=== PATIENT | female | born 1965 | race Caucasian/White ===

== ENCOUNTER 2017-02-19 05:35 | Day surgery (SDC) | payer BC, OTHER ==
[2017-02-15 13:14] VITALS: BMI 26.6
--- NOTE | 2017-02-18 15:33 | HP ---
Past Medical History - Admission Chief Complaint: Irregular bleeding History of Present Illness: 51 year old with history of having menses every 23 days lasting 7 days and heav. 6 months ago she reported bleeding for 21 days. bleeding daily for 21 days. A transvaginal ultrasound performed on 01/30/17 revealed a uterus that was 5 by 5 by 5 cm with 3 fibroids present averaging 1.3 cm. The endometrium was 9.6 mm hyperechoic with resemblence of a polyp present . 6 cm with a feeding vessel. The left ovary had a corpus luteum and the right ovary was normal. History Source: Patient Limitations to Obtaining History: No Limitations - Past Medical History ...: 2 ...Para: 2 Musculoskeletal: Yes: Other (Mid back and left sided rib pain) Endocrine: Yes: Hypothyroidism Dermatology: Yes: Other (Recent excison pigmented lesion skin right upper back) - Past Surgical History Hx Myomectomy: No Hx Transabdominal Cerclage: No - Advance Directives Advance Directives: Yes: Health Care Proxy - Smoking History Smoking history: Former smoker Have you smoked in the past 12 months: Yes If you are a former smoker, when did you quit?: 20YEARS - Alcohol/Substance Use Hx Alcohol Use: Yes (WEEKENDS) Home Medications - Allergies Allergies/Adverse Reactions: Allergies Allergy/AdvReac Type Severity Reaction Status Date / Time No Known Drug Allergies Allergy Verified 02/15/17 13:18 - Home Medications Home Medications: Ambulatory Orders Levothyroxine Sodium [Synthroid] 88 mcg PO DAILY 02/15/17 Multivitamins [Tab-A-Vit -] 1 tab PO DAILY 02/15/17 Ranitidine HCl [Zantac] 300 mg PO HS 02/15/17 Family Disease History - Family Disease History Family Disease History: Heart Disease: Father (HPT), CA: Mother (Lung) Review of Systems - Review of Systems Constitutional: reports: No Symptoms Cardiovascular: reports: No Symptoms Respiratory: reports: No Symptoms Gastrointestinal: reports: No Symptoms Genitourinary: reports: No Symptoms Musculoskeletal: reports: Back Pain (Mid back pain) Neurological: reports: No Symptoms Endocrine: reports: No Symptoms 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 Constitutional: Yes: Well Nourished, No Distress Neck: Yes: WNL, Supple, Trachea Midline Cardiovascular: Yes: WNL, Regular Rate and Rhythm Respiratory: Yes: WNL, Regular, CTA Bilaterally Gastrointestinal: Yes: WNL, Normal Bowel Sounds ...Rectal Exam: Yes: WNL Pelvis: Yes: WNL External Genitalia: Yes: Normal Internal Exam Deferred: Yes Vaginal Exam: Yes: Normal Cervix: Yes: Normal Uterus: Yes: Normal, Freely Moveable, Anteverted Adnexa: Normal: Bilateral Breast(s): Yes: WNL Psychiatric: Yes: WNL Imaging - Results Ultrasound: Other (A transvaginal ultrasound performed on 01/30/17 revealed a uterus that was 5 by 5 by 5 cm with 3 fibroids present averaging 1.3 cm. The endometrium was 9.6 mm hyperechoic with resemblence of a polyp present . 6 cm with a feeding vessel. The left ovary had a corpus luteum and the right ovary was normal.) Assessment/Plan Menorrhagia Ultrasound evidence of endometrial polyp Plan: D and C with Hysteroscopy 02/19/17.
[2017-02-19] MEDS ORDERED: LIDOCAINE HCL/PF 2% SDV 5ML VIAL ONE (09:47)
[2017-02-19] MEDS ORDERED: PROPOFOL 20 ML ONE (09:47)
[2017-02-19] MEDS ORDERED: MIDAZOLAM HCL 2 MG/2 ML SINGLE DOSE VIAL ONE (09:48)
[2017-02-19] MEDS ORDERED: IBUPROFEN 800 MG/8 ML IJ IVPB ONE (09:55)
[2017-02-19] MEDS ORDERED: DEXAMETHASONE SOD PHOSPHATE 4 MG/1 ML VIAL ONE (10:25)
[2017-02-19] MEDS ORDERED: ACETAMINOPHEN 325 MG TABLET (FP) PO PRN (10:38)
[2017-02-19] MEDS ORDERED: IBUPROFEN 400 MG TABLET (FP) PO PRN (10:38)
[2017-02-19] MEDS ORDERED: LACTATED RINGERS SOLUTION 1,000 ML IV SCH (10:45)
[2017-02-19] MEDS ORDERED: oxyCODONE HCL 5 MG TABLET PO PRN (10:45)
[2017-02-19] MEDS ORDERED: ONDANSETRON 4 MG/2 ML VIAL IVPUSH PRN (10:45)
--- NOTE | 2017-02-19 10:49 | OP ---
Operative Note - Note: Operative Date: 02/19/17 Pre-Operative Diagnosis: Irregular bleeding, endometrial polyp, menorrhagia, Fibroid uterus Findings: D and C with Hysteroscopy Post-Operative Diagnosis: Same as Pre-op Surgeon: Keron Padilla Anesthesiologist/PHOTOENGRAVING PROOFER APPRENTICE: Shira Blunt Anesthesia: General Operative Report Dictated: Yes
[2017-02-19 12:35] VITALS: TEMP 98.8
[2017-02-19 12:58] VITALS: BP 101/63; PULSE 60
--- NOTE | 2017-02-19 17:12 | OP ---
DATE OF OPERATION: 02/19/2017 PREOPERATIVE DIAGNOSES: Irregular bleeding, endometrial thickening with polyp. POSTOPERATIVE DIAGNOSES: Irregular bleeding, endometrial thickening with polyp. OPERATION: Dilatation and curettage, hysteroscopy. SURGEON: Keron Coreas MD ANESTHESIA: General, Shira Blunt MD. BLOOD LOSS: 10 mL SPECIMEN: Endometrial curettings. DESCRIPTION OF PROCEDURE: Under general anesthesia, patient was placed in the dorsal lithotomy position, prepped and draped in the usual sterile manner. A pelvic examination was performed revealing a uterus that was anterior and mobile, with normal adnexa bilaterally. A weighted speculum was inserted into the vagina. The anterior lip of the cervix grasped with a sharp-tooth tenaculum. The uterus was dilated to allow a 5-mm scope to be inserted. Uterus was sounded to 5 cm. With the use of a hysteroscope with saline distending medium, the uterine cavity was visualized. There was present a small polypoid structure adherent to the anterior wall of the uterus. With these findings noted, the hysteroscope was then removed. Curettage was performed. Polypoid-type tissue was obtained. Following curettage, the hysteroscope was then reinserted into the uterine cavity, and no polypoid structures were seen. The patient was brought to recovery room in satisfactory condition, tolerated the procedure well. KERON COREAS M.D. [id number]
--- NOTE | 2017-02-19 21:21 | OP ---
DATE OF OPERATION: 02/19/2017 ADDENDUM PREOPERATIVE DIAGNOSIS: Fibroid uterus. Matt [id number]
--- NOTE | 2017-02-20 12:56 | PATH ---
Surgical Pathology Report Patient Name: AUGUSTUS OLVERA [facility]. Rec. #: [id number] /Age/Gender: 1965 (Age: 51) / F Account: [id number] Location: [facility] Taken: 02/19/2017 Received: 02/19/2017 Reported: 02/20/2017 Physicians: Keron Padilla M.D. Specimen(s) Received ENDOMETRIUM BIOPSY Clinical History Irregular bleeding, polyp Final Diagnosis ENDOMETRIUM, CURETTING: EARLY SECRETORY ENDOMETRIUM, AND PORTIONS MYOMETRIAL TISSUE. AREAS OF STROMAL AND GLANDULAR BREAKDOWN ARE PRESENT. FOCAL AREAS SUGGESTIVE OF BENIGN ENDOMETRIAL POLYP PRESENT. MULTIPLE PORTIONS OF BENIGN MYOMETRIAL TYPE TISSUE PRESENT. Comment: No endometrial hyperplasia or carcinoma is identified. The findings may indicate a submucosal leiomyoma. Recommend correlation with clinical findings and followup as clinically indicated. Electronically Signed Jc Roberts M.D. Gross Description Received in formalin labelled "endometrium" is a 2 x 2 x 1.5 cm aggregate of lópez tissue fragments and clotted blood. Totally submitted in 4 cassettes. [facility]/02/19/2017 [facility]/02/19/2017
== END 2017-02-19 13:15 | disposition home or self-care (01) ==
LOC: JASU-SURG 05:35
PROVIDERS: ATTEND Obstetrics & Gynecology
PROC: 0UDB8ZX Extraction of Endometrium, Via Natural or Artificial Opening Endoscopic, Diagnostic (ICD-10-PCS; principal; 2017-02-19 10:00)
DX: N93.8 Other specified abnormal uterine and vaginal bleeding (principal); N84.0 Polyp of corpus uteri
CPT/HCPCS: 88305-TC; 94760

== ENCOUNTER 2021-04-02 17:25 | Emergency (ER) | payer BC, OTHER ==
[2021-04-02 17:42] VITALS: BP 126/84; PULSE 68; TEMP 97.9; BMI 26.6
== END 2021-04-02 17:58 | disposition home or self-care (01) ==
LOC: JER 17:25
DX: Z20.822 Contact with and (suspected) exposure to COVID-19 (principal)
CPT/HCPCS: 99283-25; C9803; U0003; U0005